=== PATIENT | female | born 1965 | race African-American/Black ===

== ENCOUNTER 2017-04-25 00:31 | Emergency (ER) | payer MEDICAID ==
[~2017-04-25] VITALS: Ht 167.6 cm; Wt 114.0 kg
[~2017-04-25 00:31] MED LIST: CIPR-263 PO; TRAM-350 PO
[2017-04-25] MEDS ORDERED: ONDANSETRON HCL 4MG/2ML VIAL IV STA (00:52)
[2017-04-25] MEDS ORDERED: SODIUM CHLORIDE 0.9% 1,000 ML IV ONE (00:52)
[2017-04-25] MEDS ORDERED: FAMOTIDINE 20MG/2ML VIAL IV STA (00:52)
[2017-04-25] MEDS ORDERED: LABETALOL 5MG/ML SYR 20 MG/4 ML SYRINGE IV ONE (01:00)
[2017-04-25 01:12] LABS: BASOPHILS % 0.5 % (0.0-2.0); EOSINOPHILS % 1.6 % (0.0-5.0); HEMATOCRIT. 42.3 % (36.0-48.0); HEMOGLOBIN. 14.1 g/dL (12.0-16.0); LYMPHOCYTES % 28.6 % (20.0-50.0); MEAN CORPUSCULAR HEMOGLOBIN 29.5 pg (28.0-32.0); MEAN CORPUSCULAR VOLUME 88.7 fL (81.0-99.0); MEAN PLATELET VOLUME 8.1 fl (7.4-10.4); NEUTROPHILS % 63.3 % (40.0-76.0); PLATELET 298 x1000/uL (130-400); RED BLOOD CELL COUNT 4.77 mill/uL (4.2-5.4); RED CELL DISTRIBUTION WIDTH 14.3 % (11.6-14.6)
[2017-04-25 01:15] LABS: CHLORIDE 102 mEq/L (98-107)
[2017-04-25] MEDS ORDERED: MORPHINE SULFATE 4 MG/ML CPJ (NOT FOR IM USE) IV STA (01:18)
[2017-04-25] MEDS ORDERED: MAGNESIUM/ALUMINUM HYDROXIDE/SIMETHICONE 30ML UDC PO STA (01:19)
[2017-04-25] MEDS ORDERED: DICYCLOMINE 10 MG/5 ML ORAL SYR PO STA (01:19)
[2017-04-25] MEDS ORDERED: VISCOUS LIDOCAINE 2% 15 ML UDC PO STA (01:19)
[2017-04-25 01:22] LABS: CARBON DIOXIDE 26 mEq/L (21-32); ETHANOL BLOOD 66 mg/dL
[2017-04-25 01:38] LABS: CLARITY URINE CLOUDY (CLEAR); COLOR URINE YELLOW (YELLOW); GLUCOSE URINE NEGATIVE (NEGATIVE); KETONES URINE NEGATIVE (NEGATIVE); LEUKOCYTE ESTERASE URINE TRACE (NEGATIVE); NITRITE URINE NEGATIVE (NEGATIVE); OCCULT BLOOD URINE TRACE (NEGATIVE); PROTEIN URINE TRACE (NEGATIVE); UROBILINOGEN URINE 0.2 E.U./dL (0.2-1.0)
[2017-04-25] MEDS ORDERED: MORPHINE SULFATE 10 MG/ML CPJ IV NR (01:45)
[2017-04-25 02:02] LABS: *AMPHETAMINES SCREEN URINE NEGATIVE (NEGATIVE); *BARBITURATES SCREEN URINE NEGATIVE (NEGATIVE); *BENZODIAZEPINES SCREEN URINE NEGATIVE (NEGATIVE); *COCAINE SCREEN URINE NEGATIVE (NEGATIVE); CANNABINOID URINE SCREEN PRESUMTIVE POSITIVE (NEGATIVE); METHADONE URINE SCREEN NEGATIVE (NEGATIVE); OPIATES URINE SCREEN NEGATIVE (NEGATIVE); PHENCYCLIDINE URINE SCREEN NEGATIVE (NEGATIVE)
[2017-04-25] MEDS ORDERED: NITROFURANTOIN 100MG M/M CAPSULE PO NR (03:15)
[2017-04-25 04:30] VITALS: BP 145/99
== END 2017-04-25 04:34 | disposition home or self-care (01) ==
LOC: ER 00:31
DX: R10.9 Unspecified abdominal pain (principal); I10 Essential (primary) hypertension; R11.2 Nausea with vomiting, unspecified; F12.10 Cannabis abuse, uncomplicated; F10.129 Alcohol abuse with intoxication, unspecified; N39.0 Urinary tract infection, site not specified; K42.9 Umbilical hernia without obstruction or gangrene; D25.9 Leiomyoma of uterus, unspecified; F17.210 Nicotine dependence, cigarettes, uncomplicated; Z90.49 Acquired absence of other specified parts of digestive tract
CPT/HCPCS: 36415; 74176; 80053; 80305; 81001; 81025; 83690; 85025; 96361; 96374; 96375; 99285; G0482; J2270; J2405; J3490; J7030; Z7610

== ENCOUNTER 2018-09-18 13:35 | Inpatient (IN) | payer MEDICAID ==
[~2018-09-18] VITALS: Ht 167.6 cm; Wt 118.8 kg
[2018-09-18] MEDS ORDERED: MORPHINE SULFATE 4 MG/ML CPJ (NOT FOR IM USE) IV STA (21:21)
[2018-09-18] MEDS ORDERED: SODIUM CHLORIDE 0.9% 1,000 ML IV ONE (21:21)
[2018-09-18] MEDS ORDERED: ONDANSETRON HCL 4MG/2ML INJ IV STA (21:21)
[2018-09-18 21:36] LABS: BASOPHILS % 0.5 % (0.0-2.0); HEMATOCRIT. 43.3 % (36.0-48.0); HEMOGLOBIN. 14.5 g/dL (12.0-16.0); LYMPHOCYTES % 21.6 % (20.0-50.0); MEAN CORPUSCULAR HEMOGLOBIN 29.3 pg (28.0-32.0); MEAN CORPUSCULAR VOLUME 87.4 fL (81.0-99.0); MEAN PLATELET VOLUME 8.3 fl (7.4-10.4); MONOCYTES % 6.8 % (2.0-8.0); NEUTROPHILS % 68.1 % (40.0-76.0); PLATELET 313 x1000/uL (130-400); RED BLOOD CELL COUNT 4.96 mill/uL (4.2-5.4); RED CELL DISTRIBUTION WIDTH 14.9 % (11.6-14.6)
[2018-09-18 21:41] LABS: CHLORIDE 103 mEq/L (98-107)
[2018-09-18 21:42] LABS: PROTHROMBIN TIME 10.3 sec (9.6-11.0)
[2018-09-18 22:17] LABS: CLARITY URINE CLEAR (CLEAR); COLOR URINE DARK YELLOW (YELLOW); KETONES URINE 3+ (NEGATIVE); LEUKOCYTE ESTERASE URINE TRACE (NEGATIVE); NITRITE URINE NEGATIVE (NEGATIVE); OCCULT BLOOD URINE TRACE (NEGATIVE); PH URINE 5.5 (4.5-8.0); PROTEIN URINE TRACE (NEGATIVE); SPECIFIC GRAVITY URINE 1.022 (1.005-1.030)
[2018-09-19] VITALS: BP 151/86
[2018-09-19] MEDS ORDERED: TRAMADOL 50MG TABLET PO ONE (01:15)
[2018-09-19 08:30] VITALS: BP 146/85
[2018-09-19 08:50] VITALS: BP 146/85
[2018-09-19] MEDS ORDERED: ENOXAPARIN 40MG/0.4ML SYR SUBCUT SCH (09:30)
[2018-09-19] MEDS ORDERED: DIPHENHYDRAMINE 50MG/ML VIAL IV PRN (09:30)
[2018-09-19] MEDS ORDERED: GUAIFENESIN 200MG/10ML SUGAR FREE UDC PO PRN (09:30)
[2018-09-19] MEDS ORDERED: MAGNESIUM/ALUMINUM HYDROXIDE/SIMETHICONE 30ML UDC PO PRN (09:30)
[2018-09-19] MEDS ORDERED: CLONIDINE 0.1MG TABLET PO PRN (09:30)
[2018-09-19] MEDS ORDERED: DOCUSATE SODIUM 100MG CAPSULE PO PRN (09:30)
[2018-09-19] MEDS ORDERED: IPRATROPIUM/ALBUTEROL 0.5-3(2.5)MG/3ML NEB INH PRN (09:30)
[2018-09-19] MEDS ORDERED: ENOXAPARIN 30MG/0.3ML SYR SUBCUT SCH (10:00)
[2018-09-19 10:16] LABS: PHOSPHORUS 3.7 mg/dL (2.5-4.9)
[2018-09-19] MEDS: DEXT 5%/0.45% NACL 1000ML 1,000 ML IV SCH (11:04)
[2018-09-19] MEDS: ONDANSETRON HCL 4MG/2ML INJ IV PRN ×2 (11:46→18:23)
[2018-09-19 12:00] VITALS: BP 135/74
[2018-09-19] MEDS ORDERED: ACETAMINOPHEN 325MG TABLET PO PRN (13:00)
[2018-09-19] MEDS ORDERED: ONDANSETRON HCL 4MG/2ML INJ IV PRN (13:00)
[2018-09-19 16:00] VITALS: BP 144/92
[2018-09-19] MEDS: MORPHINE SULFATE 4 MG/ML CPJ (NOT FOR IM USE) IV PRN (18:16)
[2018-09-19 20:00] VITALS: BP 136/92
[2018-09-20] VITALS (7 sets, daily range): BP systolic 122–158; BP diastolic 81–97
[2018-09-20] MEDS: MORPHINE SULFATE 4 MG/ML CPJ (NOT FOR IM USE) IV PRN ×3 (00:05→12:20)
[2018-09-20] MEDS: DEXT 5%/0.45% NACL 1000ML 1,000 ML IV SCH (04:52)
[2018-09-20 06:01] LABS: BASOPHILS % 0.5 % (0.0-2.0); EOSINOPHILS % 1.5 % (0.0-5.0); HEMATOCRIT. 39.3 % (36.0-48.0); HEMOGLOBIN. 12.9 g/dL (12.0-16.0); LYMPHOCYTES % 14.5 % (20.0-50.0); MEAN PLATELET VOLUME 8.7 fl (7.4-10.4); MONOCYTES % 7.5 % (2.0-8.0); PLATELET 289 x1000/uL (130-400); RED BLOOD CELL COUNT 4.46 mill/uL (4.2-5.4); RED CELL DISTRIBUTION WIDTH 15.2 % (11.6-14.6)
[2018-09-20 09:06] LABS: CHLORIDE 104 mEq/L (98-107)
[2018-09-20 09:20] LABS: LDL CHOLESTEROL 86 mg/dL (5-100)
[2018-09-20 09:22] LABS: HDL CHOLESTEROL 59 mg/dL (40-59)
[2018-09-20] MEDS: ONDANSETRON HCL 4MG/2ML INJ IV PRN (10:45)
[2018-09-20] MEDS: CEFTRIAXONE 1 G PREMIX 50 ML IV SCH (12:02)
[2018-09-20] MEDS ORDERED: IOHEXOL-300 100 ML BOTTLE ONE (14:19)
[2018-09-20] MEDS ORDERED: SIMETHICONE 40 MG/0.6 ML 30ML ONE (14:19)
[2018-09-20] MEDS ORDERED: NEOSTIGMINE METHYLSULFATE 1MG/ML 10 ML VIAL ONE (16:45)
[2018-09-20] MEDS ORDERED: LIDOCAINE HCL/PF 1% 10 MG/ML 5ML VIAL ONE (16:45)
[2018-09-20] MEDS ORDERED: SUCCINYLCHOLINE CHLORIDE 200MG/10ML IV ONE (16:45)
[2018-09-20] MEDS ORDERED: FENTANYL CITRATE/PF 50MCG/ML 2ML VIAL ONE (16:45)
[2018-09-20] MEDS ORDERED: GLYCOPYRROLATE 0.2 MG/ML 2ML VIAL ONE (16:45)
[2018-09-20] MEDS ORDERED: MIDAZOLAM HCL 2 MG/2 ML VIAL ONE (16:45)
[2018-09-20] MEDS ORDERED: SODIUM CHLORIDE 0.9% 10ML VIAL ONE (16:45)
[2018-09-20] MEDS ORDERED: ROCURONIUM BROMIDE 10MG/ML VIAL 5ML IV ONE (16:45)
[2018-09-20] MEDS ORDERED: PROPOFOL 200MG/20ML VIAL IV ONE (16:45)
[2018-09-20] MEDS ORDERED: METOCLOPRAMIDE HCL 10MG/2ML VIAL ONE (16:46)
[2018-09-20] MEDS ORDERED: PHENYLEPHRINE HCL 10 MG/ML 1ML (IV VIAL) IV ONE (16:46)
[2018-09-20] MEDS ORDERED: ONDANSETRON HCL 4MG/2ML INJ ONE (16:46)
[2018-09-20] MEDS ORDERED: EPHEDRINE SULFATE 50MG/ML VIAL ONE (16:46)
[2018-09-20] MEDS ORDERED: ALBUTEROL 90MCG/PUFF 17GM INHALER INH ONE (17:54)
[2018-09-20] MEDS ORDERED: SODIUM CHLORIDE 0.9% 1,000 ML IV ONE (18:11)
[2018-09-20] MEDS ORDERED: MORPHINE SULFATE 4 MG/ML CPJ (NOT FOR IM USE) IV PRN (18:15)
[2018-09-20] MEDS ORDERED: ONDANSETRON HCL 4MG/2ML INJ IV PRN (18:15)
[2018-09-20] MEDS ORDERED: MEPERIDINE HCL/PF 25MG/ML CPJ IV PRN ×2 (18:15)
[2018-09-20] MEDS ORDERED: HYDROMORPHONE HCL/PF 2MG/ML CPJ IV PRN (18:15)
[2018-09-21 04:20] VITALS: BP 124/77
[2018-09-21] MEDS: DEXT 5%/0.45% NACL 1000ML 1,000 ML IV SCH ×2 (05:13→13:35)
[2018-09-21 08:00] VITALS: BP 127/70
[2018-09-21] MEDS ORDERED: THROAT LOZENGES-BENZOCAINE/MENTH/CETYLPYRD CL LOZENGES MM PRN (08:00)
[2018-09-21] MEDS: CEFTRIAXONE 1 G PREMIX 50 ML IV SCH (13:34)
[2018-09-21 16:45] VITALS: BP 135/74
== END 2018-09-21 17:33 | disposition home or self-care (01) ==
LOC: ER 13:35 → 6EST 09-19 03:15 → ENRESERV 09-19 07:31 → 6EST 09-19 08:46
PROVIDERS: ADMIT Internal Medicine; ATTEND Internal Medicine
PROC: 0F798DZ Dilation of Common Bile Duct with Intraluminal Device, Via Natural or Artificial Opening Endoscopic (ICD-10-PCS; principal; 2018-09-20)
PROC: BF101ZZ Fluoroscopy of Bile Ducts using Low Osmolar Contrast (ICD-10-PCS; 2018-09-20)
PROC: 0FC98ZZ Extirpation of Matter from Common Bile Duct, Via Natural or Artificial Opening Endoscopic (ICD-10-PCS; 2018-09-20)
DX: K80.51 Calculus of bile duct without cholangitis or cholecystitis with obstruction (principal); Z68.41 Body mass index [BMI] 40.0-44.9, adult; I10 Essential (primary) hypertension; E66.9 Obesity, unspecified; J98.01 Acute bronchospasm; K42.9 Umbilical hernia without obstruction or gangrene; F17.210 Nicotine dependence, cigarettes, uncomplicated; Z87.442 Personal history of urinary calculi; Z90.49 Acquired absence of other specified parts of digestive tract
CPT/HCPCS: 36415; 74176; 74328; 80061; 80076; 83735; 84100; 84443; 93970; 96374; 96375; 97161; 97165; 99285; C1726; C1769; C2625; J0330; J0696; J1650; J2250; J2270; J2370; J2405; J2704; J2710; J2765; J3010; J3490; J7030; Q9967

== ENCOUNTER 2021-06-13 21:50 | Emergency (ER) | payer MEDICAID, OTHER ==
[~2021-06-13] VITALS: Ht 167.6 cm; Wt 118.0 kg
[2021-06-13] MEDS ORDERED: KETOROLAC 30MG/ML VIAL IV STA (23:03)
[2021-06-13] MEDS ORDERED: MORPHINE SULFATE 4 MG/ML CPJ (NOT FOR IM USE) IV STA (23:03)
[2021-06-13] MEDS ORDERED: METOCLOPRAMIDE HCL 10MG/2ML VIAL IV STA (23:03)
[2021-06-14 00:41] LABS: HEMATOCRIT. 42.9 % (36.0-48.0); HEMOGLOBIN. 13.8 g/dL (12.0-16.0); MEAN CORPUSCULAR VOLUME 87.2 fL (81.0-99.0); MEAN PLATELET VOLUME 8.4 fl (7.4-10.4); PLATELET 302 x1000/uL (130-400); RED BLOOD CELL COUNT 4.92 mill/uL (4.2-5.4); RED CELL DISTRIBUTION WIDTH 14.7 % (11.6-14.6)
[2021-06-14 00:48] LABS: CHLORIDE 105 mEq/L (98-107)
[2021-06-14] MEDS ORDERED: MORPHINE SULFATE 10 MG/ML CPJ IV ONE (01:45)
[2021-06-14 01:55] LABS: PLATELET ESTIMATE NORMAL
[2021-06-14] MEDS ORDERED: T3 PO (02:07)
[2021-06-14 02:20] VITALS: BP 158/82
== END 2021-06-14 02:30 | disposition home or self-care (01) ==
LOC: ER 21:50
DX: R10.9 Unspecified abdominal pain (principal); K43.9 Ventral hernia without obstruction or gangrene; Z90.49 Acquired absence of other specified parts of digestive tract
CPT/HCPCS: 36415; 71045; 74176; 80053; 83690; 83880; 84484; 85025; 93005; 96374; 96375; 96376; 99285; J1885; J2270; J2765; Z7610

== ENCOUNTER 2022-12-30 07:33 | Emergency (ER) | payer OTHER ==
[~2022-12-30] VITALS: Ht 167.6 cm; Wt 118.0 kg
[~2022-12-30 07:33] MED LIST changes: +T3 PO
[2022-12-30 07:51] VITALS: BP 180/101; PULSE 71; RESP 20; TEMP 98; O2SAT 98
[2022-12-30] MEDS ORDERED: BUTE15CR TP (08:23)
[2022-12-30] MEDS ORDERED: TC1U15 TP (08:23)
== END 2022-12-30 08:32 | disposition home or self-care (01) ==
LOC: ER 08:01
DX: S80.862A Insect bite (nonvenomous), left lower leg, initial encounter (principal); Z90.49 Acquired absence of other specified parts of digestive tract; W57.XXXA Bitten or stung by nonvenomous insect and other nonvenomous arthropods, initial encounter; Y93.89 Activity, other specified; Y92.89 Other specified places as the place of occurrence of the external cause; Y99.8 Other external cause status
CPT/HCPCS: 99283